=== PATIENT | female | born 1980 | race Hispanic/Latino ===

== ENCOUNTER 2019-07-10 07:44 | Day surgery (SDC) | payer OTHER ==
[2019-07-10 08:28] VITALS: BMI 35.5
[2019-07-10 08:45] VITALS: BP 118/65; TEMP 97.5
[2019-07-10] MEDS ORDERED: hydrALAZINE 20 MG/ML VIAL SLOW IVP PRN (09:01)
--- NOTE | 2019-07-10 09:40 | PDOC.FPROB ---
FMR OB H&P: HPI - History of Present Illness Chief Complaint: vaginal bleeding, abdominal pain Indentification: 39 yo at 35.1 wga by 9.3 wk sono/LMP History of Present Illness: 39 yo at 35.1 wga by 9.3 wk sono/LMP complains of vaginal bleeding as blood on TP today at 0700. Also started having pain in lower abdomen b/l and pressure. Describes as contractions every 10 minutes. Denies recent sexual intercourse, trauma, being hit to belly/falls. Denies vaginal discharge, itching , dysuria. +FM, no LOF. Primary Care Physician: PNC: Maurisio. FMR OB H&P: Current - Care : 3 Para: 2001 Gestational age: 35.1 Due date: 08/14/2019 Dating Criteria: 9.3 wk sono Course/Complications: AMA Latent TB Anterior fibroid ECHO for FHX of ASD. - OB Labs Blood type: A RH: positive Antibody Screen: negative HIV: negative RPR: negative HepBsAg: negative Rubella: immune Gonorrhea: negative Chlamydia: negative Pap Smear: NILM 1 hour gtt: 135 GBS: unknown - Anatomy Survey Anatomy survey: placenta anterior. FMR OB H&P: History - Past Medical History PMH: Uterine fibroid. - OB History OB History: Prior LTCS x2. Scheduled for repeat CS on 08/14/2019 and risk reducing salpingectomy for Fhx of ovarian cancer. - CONSTRUCTION JOB TITLES History CONSTRUCTION JOB TITLES History: None - Surgical History Sx History: 2 c-sections - Social History Social History: Denies - Family History Family History: FHx of DM FMR OB H&P: Medications - Current Home Medications: Medication Instructions Recorded Confirmed Type Vit,Calc76/Iron/Folic 1 tablet PO DAILY 07/10/19 07/10/19 History [Prenatabs Rx Tablet] Allergies/Adverse Reactions: Allergies Allergy/AdvReac Type Severity Reaction Status Date / Time No Known Allergies Allergy Unverified 07/10/19 08:24 FMR OB H&P: ROS - Review of Systems General: denies: fever/chills, weight/appetite/sleep changes Eyes: denies: vision changes ENT: denies: nasal congestion, rhinorrhea, sore throat Cardiovascular: denies: chest pain, palpitation, edema Respiratory: denies: cough, congestion, shortness of breath Gastrointestinal: reports: abdominal pain. denies: nausea, vomiting, diarrhea Genitourinary (Female): reports: vaginal bleeding, contractions. denies: dysuria, vaginal discharge, vaginal pain Musculoskeletal: denies: pain Neurologic: denies: syncope, weakness Integumentary: denies: itching, rash Hematologic/Lymphatic: denies: prolonged or excessive bleeding Psychological: denies: depression, anxiety FMR OB H&P: Vital Signs - Maternal Vital signs: Vital Signs - First Documented Temp Pulse Resp BP 97.5 F L 78 18 118/65 07/10/19 08:40 07/10/19 08:40 07/10/19 08:40 07/10/19 08:40 - Heart Tones Baseline: 140 (reactive) Variability: moderate Acceleration: present (x2) Deceleration: absent Piru contractions every: 10 min FMR OB H&P: Physical Exam - Physical Exam General: NAD, awake, alert and oriented HEENT: normocephalic and atraumatic, no scleral icterus Heart: RRR, normal S1/S2 General: CTAB, no respiratory distress Abdomen: soft, gravid (mildly tender to palpation) Neurological: no focal deficit Skin: no rash Lymphatic: no unusual bruising or bleeding, no purpura Psychiatric: normal mood and affect - Pelvic Exam Deviation from normal: speculum exam showed moderate amount of blood pooling from cervical os Estimated Weight: 7 lbs FMR OB H&P: A/P - Problem List (1) Vaginal bleeding during Current Visit: Yes Status: Acute Code(s): O46.90 - ANTEPARTUM HEMORRHAGE, UNSPECIFIED, UNSPECIFIED TRIMESTER (2) Multiparous Current Visit: Yes Status: Acute Code(s): Z64.1 - PROBLEMS RELATED TO MULTIPARITY Disposition: monitor on L&D for 6-23 hours. Discussion: Date/Time: 07/10/19 0938 Vaginal bleeding and contractions at 35.1 wga - DDx: placental abruption, labor, placenta previa, vasa previa, rupture of nabothian cyst (less likely on sterile spec exam) - No hx of trauma or sexual intercourse recently - monitor on L&D w/ continuous EFM and tocometry - NST reactive - betamethasone now and repeat in 24 hrs for lung maturity - OB limited Sono for evaluation of placenta for previa, EFW - CBC now, repeat CBC in 4 hours - Type & Cross 2 units - Fibrinogen ordered. AMA Previous 2 c-sections. This H&P was discussed with Dr. Yuan, who agrees with the above documentation and plan. Signature: Eunice Monreal MD PGY1
--- NOTE | 2019-07-10 10:16 | HP ---
This is a patient of the clinic, who was first assessed by the resident on-call, Dr. Monreal. TIME OF EVALUATION: 0930 hours. REASON FOR EVALUATION: Vaginal bleeding at 35 weeks. In brief, I agree with the resident's evaluation and I have seen the patient. In brief, this is the patient's report: HISTORY OF PRESENT ILLNESS: This is a 39-year-old, G3, P2, who is at 35 weeks by sure criteria (9-week ultrasound) with vaginal spotting on the toilet and small amount of vaginal bleeding, but no passage of clots. She has some contractions, but they are mild and irregular. She has not had recent intercourse and denies recent trauma. She denies any evidence of leakage of fluid. Once again, she has had 2 prior births. REVIEW OF SYSTEMS: Complete review of systems was checked and is otherwise negative unless specified in the HPI. PAST MEDICAL HISTORY: None. PAST SURGICAL HISTORY: Includes 2 C sections. ALLERGIES: IN TERMS OF HER ALLERGIES, THE PATIENT REPORTS NO KNOWN DRUG ALLERGIES. PHYSICAL EXAMINATION: GENERAL: She is in no acute distress. VITAL SIGNS: Stable. She is afebrile and normotensive. The patient's BMI is 35.5. ABDOMEN: Soft and nontender, and there is no evidence of uterine hypertonus. PELVIC: Currently deferred. Pending an ultrasound to confirm that a previa is not present (there is no evidence of a previa on the record. record shows that the placenta is "anterior"). On speculum exam, cervix appears grossly closed and there is a small amount of blood in the vault. There is no active bleeding at this time. monitor; heart tones show moderate variability and acceleration with no pathological decelerations. There is some uterine irritability on the tocodynamometer. At this point, the nonstress test is reassuring. Interventions ordered. We have ordered an ultrasound to confirm that the placenta location is normal, and also to check the estimated weight. We have also ordered a CBC now and a repeat one in 4 hours. We have also ordered a serum fibrinogen. ASSESSMENT: This is a multigravida, who has advanced maternal age at 39, two prior C-sections, at 35 weeks and 1 day, with vaginal bleeding, not otherwise specified. I suspect a marginal placental separation as there is no evidence of previa on review of her record. PLAN: 1. Ultrasound to confirm placental location as well as determine estimated weight. 2. The patient's Rh type is positive. 3. KB test was not ordered as a KB test is not helpful to rule out abruption. Additionally, her Rh type is positive. 4. We did not order a cervical length as she is over 34 weeks. 5. Once we rule out a previa, we will perform a cervical digital exam. 6. Follow CBCs for now and consider 6 hours to 23 hours observation for now. 7. Due to the bleeding, we may consider Celestone in case she needs to have a medically indicated delivery. Job ID: [id number]
--- NOTE | 2019-07-10 10:28 | ULT ---
LIMITED OB ULTRASOUND: HISTORY: Cervical length and placental evaluation. Vaginal bleed. FINDINGS: A single live intrauterine gestation is seen with measurements corresponding to an estimated gestatio nal age of 34 weeks 5 days and an ARIE of 08/16/2019. The estimated weight measures 2439 g (5 lb s 6 oz). measurements are as follows: BPD: 8.73 cm (35 weeks 2 days) HC: 31.11 cm (34 weeks 6 days) AC: 30.57 cm (34 weeks 4 days) FL: 6.60 cm (34 weeks 0 days) heart rate measures 147 beats per minute. ANNA measures 12.4 cm. The placenta is anteriorly loca shari without evidence of placenta previa. Cervical length measures 4.9 cm. IMPRESSION: Single live intrauterine of 34 weeks' 5 days' estimated gestational age and estimated date of delivery of 08/16/2019. POS: [facility]
[2019-07-10 11:10] LABS: #Basophils 0.1 thou/uL (0.0-0.2); #Eosinphils 0.1 thou/uL (0.0-0.7); #Lymphocytes 1.6 thou/uL (1.20-3.40); #Monocytes 0.7 thou/uL (0.11-0.59); #Neutrophils 6.8 thou/uL (1.40-6.50); %Basophils 0.6 % (0.0-1.0); %Eosinophils 0.8 % (0.0-10.0); %Lymphocytes 17.5 % (21.0-51.0); %Monocytes 7.1 % (0.0-10.0); %Neutrophils 74.1 % (42.0-75.0); Hemoglobin 11.5 g/dL (12.0-16.0); Mean Corpuscular HGB CONC 35.1 g/dL (32.0-36.0); Mean Corpuscular Hemoglobin 29.2 pg (27.0-31.0); Mean Platelet Volume 7.6 fL (7.4-10.4); Platelet Count 299 thou/uL (130-400); RBC Distribution Width 13.1 % (11.5-14.5); Red Blood Cell (RBC) Count 3.96 mill/uL (4.20-5.40); White Blood Cell (WBC) Count 9.1 thou/uL (4.8-10.8)
[2019-07-10 11:16] LABS: Bilirubin Negative (Negative); Blood, Urine Negative (Negative); Clarity Clear (Clear); Glucose, Urine (Dipstick) Normal (Negative); Leukocyte Negative Leu/uL (Negative); Mucous/LPF Rare LPF (<2+); Nitrite Negative (Negative); Protein, Urine (Dipstick) Negative (Neg-Trace); RBC/HPF 0-3 HPF (0-3); Squamous Epithelial 0-3 HPF (0-3); Urobilinogen Normal mg/dL (Less than 2); WBC/HPF 0-3 HPF (0-3)
[2019-07-10 11:17] LABS: Bacteria/HPF Rare-Few HPF (None Seen)
[2019-07-10 11:19] LABS: Urine Culture Reflex No No
--- NOTE | 2019-07-10 11:20 | PDOC.EVN ---
Event Note - Event Note Event Note: SONO Follow Up: Resident team reviewed sono with Radiologist: anterior placenta but no real concern for accreta based on prior MFM sonos done antenatally. No previa...so we can get CX check for baseline.
--- NOTE | 2019-07-10 11:46 | PDOC.BPN ---
- Brief Progress Note SVE: closed/thick/high No daren bleeding noted. Ctx have slowed. Pt encouraged to drink: clear liquid diet. Monitor for min 6 hours. Received betamethasone, first dose.
[2019-07-10] MEDS ORDERED: Betamet Acet/Betamet Na Ph 30 MG/5 ML VIAL IM SCH (12:00)
[2019-07-10 14:15] LABS: #Eosinphils 0.1 thou/uL (0.0-0.7); #Lymphocytes 1.1 thou/uL (1.20-3.40); #Monocytes 0.4 thou/uL (0.11-0.59); %Basophils 0.3 % (0.0-1.0); %Eosinophils 0.5 % (0.0-10.0); %Lymphocytes 10.5 % (21.0-51.0); %Monocytes 3.4 % (0.0-10.0); %Neutrophils 85.3 % (42.0-75.0); Hemoglobin 11.8 g/dL (12.0-16.0); Mean Corpuscular HGB CONC 36.3 g/dL (32.0-36.0); Mean Corpuscular Hemoglobin 29.9 pg (27.0-31.0); Mean Corpuscular Volume 82.5 fL (78.0-98.0); Mean Platelet Volume 7.6 fL (7.4-10.4); Platelet Count 295 thou/uL (130-400); RBC Distribution Width 13.3 % (11.5-14.5); Red Blood Cell (RBC) Count 3.94 mill/uL (4.20-5.40); White Blood Cell (WBC) Count 10.6 thou/uL (4.8-10.8)
--- NOTE | 2019-07-10 15:27 | PDOC.BPN ---
<Paulina Monreal - Last Filed: 07/10/19 15:24> - Brief Progress Note Repeat CBC unchanged. Fibrinogen high. UA wnl. OB sono showed anterior placenta w/o concern for previa or accreta. EFW appropriate for age. No continued VB noted on cervical check and none reported per patient. Pt feeling better and abdominal pain has decreased. Contractions less frequent: 1-2 per 30 minutes. May d/c and return tomorrow ~11:00 (sometime early afternoon) for second betamethasone injection and NST. Return precautions and labor precautions given. Discussed w/ Yuan. He agrees. Bhargavi Monreal. <Pascual Yuan - Last Filed: 07/10/19 15:38> - Brief Progress Note Faculty note: I have seen the patient and reviewed data. OK for outpatient follow up. Plan is for second celestone with NST tomorrow. Stable for DC with no further episode of VB
== END 2019-07-10 16:00 | disposition home health service, planned readmission (86) ==
LOC: L&D/OP 07:44
PROVIDERS: ATTEND Emergency Medicine
DX: O26.853 Spotting complicating pregnancy, third trimester (principal); O47.03 False labor before 37 completed weeks of gestation, third trimester; O09.523 Supervision of elderly multigravida, third trimester; O34.219 Maternal care for unspecified type scar from previous cesarean delivery; Z3A.35 35 weeks gestation of pregnancy
CPT/HCPCS: 36415; 51701; 76815; 81001; 85025; 85384; 86850; 86900; 86901; 96372; J0702

== ENCOUNTER 2019-07-11 11:12 | Day surgery (SDC) | payer OTHER ==
[2019-07-11 12:03] VITALS: BP 110/59; TEMP 98.7; BMI 36.3
[2019-07-11] MEDS ORDERED: Betamet Acet/Betamet Na Ph 30 MG/5 ML VIAL IM SCH (12:15)
--- NOTE | 2019-07-16 15:20 | PRG ---
DATE OF SERVICE: 07/15/2019 This patient returned to outpatient Labor and Delivery for a second betamethasone shot and nonstress test to assess for well-being. The patient was placed on nonstress test monitor for greater than 20 minutes. I personally reviewed the strip. It appeared to be reactive. The mother did not appear to be in active labor or heavy contractions. The patient was then given her second betamethasone shot for lung maturity, and was deemed suitable to be discharged home. Job ID: [id number]
== END 2019-07-11 13:10 | disposition home or self-care (01) ==
LOC: L&D/OP 11:12
PROVIDERS: ATTEND Student in an Organized Health Care Education/Training Program
DX: Z29.8 Encounter for other specified prophylactic measures (principal)

== ENCOUNTER 2019-07-15 10:32 | Day surgery (SDC) | payer OTHER ==
[2019-07-15 11:18] VITALS: BMI 36.3
[2019-07-15] MEDS ORDERED: hydrALAZINE 20 MG/ML VIAL SLOW IVP PRN (11:40)
[2019-07-15] MEDS ORDERED: Sodium Chloride 0.9% 1,000 ML IV SCH (11:45)
--- NOTE | 2019-07-15 11:45 | PDOC.FPROB ---
FMR OB H&P: HPI - History of Present Illness Chief Complaint: Contractions Indentification: female at 35.5 weeks EGA by LMP c/w 9.4 week U/S History of Present Illness: Patient is a 39 yo female at 35.5 weeks by LMP c/w 9.4 week U/S who presents to L&D triage with complaint of contractions since 0500 this mornings. She states that from 5-6AM was having contractions every 10 min, then since 6AM having contractions every 5 min. She says she felt well yesterday. In addition to the contractions she complains of constant back pain that she feels even without the contractions. Also has some abdominal pain that started around 5AM. Denies any vaginal bleeding or discharge, headaches, dizziness, blurry vision, paresthesias, myalgias, edema. Of note, Patient was seen for vaginal bleeding on 07/10/19, was given dose of steroids x 2 at that time. No bleeding or discharge since. Primary Care Physician: Vero FMR OB H&P: Current - Care : 3 Para: 2 Gestational age: 35.5 Due date: 08/14/2019 Dating Criteria: LMP c/w 9.4 week sono Course/Complications: AMA Obesity Latent TB Anterior fibroid ECHO for FHX of sister with ASD & Pulm stenosis-echo was normal with rec for echo once delivered - OB Labs Blood type: A RH: positive Antibody Screen: negative HIV: negative RPR: negative HepBsAg: negative Rubella: immune Quad screen: unknown Urine drug screen: not done Gonorrhea: negative Chlamydia: negative Pap Smear: NILM 1 hour gtt: 135 GBS: unknown H&H: 10.6/30.8 - Anatomy Survey Anatomy survey: Anterior Placenta Anterior Uterine fibroid FMR OB H&P: History - Past Medical History PMH: Obesity Uterine fibroid - OB History OB History: Prior LTCS x2. 1st LTCS in 2008 for long labor & decreased fluid. Elective rLTCS in 2009. Both term pregnancies Scheduled for repeat CS on 08/14/2019 and risk reducing salpingectomy for Fhx of ovarian cancer. 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 - Family History Family History: Ovarian Cancer Diabetes Mellitus Daughter with ASD & Pulmonary stenosis, has been followed by M in this FMR OB H&P: Medications - Current Home Medications: Medication Instructions Recorded Confirmed Type Vit,Calc76/Iron/Folic 1 tablet PO DAILY 07/10/19 07/15/19 History [Prenatabs Rx Tablet] Allergies/Adverse Reactions: Allergies Allergy/AdvReac Type Severity Reaction Status Date / Time No Known Allergies Allergy Verified 07/15/19 11:19 FMR OB H&P: ROS - Review of Systems General: denies: fever/chills, weight/appetite/sleep changes, fatigue, recent trauma Eyes: denies: vision changes, double vision ENT: denies: nasal congestion, rhinorrhea, sore throat Cardiovascular: denies: chest pain, palpitation, edema Respiratory: denies: cough, congestion, shortness of breath Gastrointestinal: reports: abdominal pain. denies: nausea, vomiting, diarrhea, constipation, bright red blood, dark black tarry stools Genitourinary (Female): reports: contractions, vaginal pressure. denies: dysuria, hematuria, vaginal discharge, vaginal pain, vaginal bleeding Musculoskeletal: denies: pain, tenderness, swelling Neurologic: denies: numbness, weakness, headache Integumentary: denies: itching, rash, lesions Psychological: denies: depression, anxiety FMR OB H&P: Vital Signs - Maternal Vital signs: BP 111/58 - Heart Tones Baseline: 145 Variability: moderate Acceleration: present Deceleration: absent [place] contractions every: 5 min FMR OB H&P: Physical Exam - Physical Exam General: NAD, awake, alert and oriented HEENT: normocephalic and atraumatic, EOMI, MMM, conjunctiva clear, grossly normal vision, grossly normal hearing Neck: supple Heart: RRR, normal S1/S2, no murmurs/rubs/gallops, pulses present, no edema General: CTAB, no respiratory distress, good air movement, no rales/rhonchi, no wheezing Abdomen: soft, bowel sound present Deviation from normal: TTP over fundus with light palpation Musculoskeletal: pulses present Neurological: sensation to pain,touch and proprioception grossly normal, no focal deficit Skin: no rash, good tugor Lymphatic: no unusual bruising or bleeding Psychiatric: intact recent and remote memory, normal mood and affect - Pelvic Exam Vulva: no lesions, no discharge, no blood Cervix: no blood (cervix closed and high) Membranes: intact FMR OB H&P: A/P Disposition: 39 yo female at 35.5 weeks by LMP c/w 9.4 wk sono presents with contractions & abdominal pain: #Third Trimester , currently ant -hx of 2 prior C/S -give 1 L NS IVF bolus -place on monitoring, currently showing contractions q5min -obtain US abdomen to r/o abruption given hx of abdominal pain & exam findings -check CBC to r/o infection -per previous U/S has anterior placenta & anterior fibroid #Advanced Maternal Age -followed by M, has next growth scan U/S ordered for Jul 20 #Obesity -passed 1 hr GTT -diet counseling Dispo: Will plan to obtain U/S and labs. Continue monitoring. Will administer 1L NS IVF bolus. Will recheck in 1-2 hours. Discussion: Date/Time: 07/15/19 0052 This H&P was discussed with Dr. Forde and Dr. Leon who agree with the above documentation and plan. Signature: Brigid Houston DO PGY1 Addendum - Attending - Attending Attestation Date/Time: 07/15/19 1251 I personally evaluated the patient and discussed the management with Drs. Houston and Maurisio. I agree with the History, Examination, Assessment and Plan documented above.
[2019-07-15 12:10] LABS: #Basophils 0.1 thou/uL (0.0-0.2); #Eosinphils 0.1 thou/uL (0.0-0.7); #Lymphocytes 2.5 thou/uL (1.20-3.40); #Neutrophils 11.4 thou/uL (1.40-6.50); %Basophils 0.5 % (0.0-1.0); %Eosinophils 0.5 % (0.0-10.0); %Lymphocytes 16.4 % (21.0-51.0); %Monocytes 6.7 % (0.0-10.0); Hemoglobin 12.7 g/dL (12.0-16.0); Mean Corpuscular HGB CONC 35.3 g/dL (32.0-36.0); Mean Corpuscular Hemoglobin 28.5 pg (27.0-31.0); Mean Corpuscular Volume 80.9 fL (78.0-98.0); Mean Platelet Volume 8.1 fL (7.4-10.4); Platelet Count 342 thou/uL (130-400); RBC Distribution Width 13.5 % (11.5-14.5); Red Blood Cell (RBC) Count 4.46 mill/uL (4.20-5.40); White Blood Cell (WBC) Count 15.1 thou/uL (4.8-10.8)
--- NOTE | 2019-07-15 12:27 | ULT ---
LIMITED OB ULTRASOUND: HISTORY: Abdominal pain. Concern for abruption. FINDINGS: A single live intrauterine gestation is seen with measurements corresponding to an estimated gestatio nal age of 35 weeks 6 days and an ARIE of 08/13/2019. The estimated weight measures 2763 g or 6 lbs 1 oz (51st percentile by Hadlock criteria). measurements are as follows: BPD: 8.92 cm (36 weeks 1 day) HC: 32.07 cm (36 weeks 1 day) AC: 32.04 cm (36 weeks 0 days) FL: 6.83 cm (35 weeks 1 day) heart rate measures 144 beats per minute. ANNA measures 15.6 cm. Placenta is anteriorly located without evidence of placenta previa. No retroplacental hematoma is seen. IMPRESSION: Single live intrauterine of 35 weeks' 6 days' estimated gestational age and estimated date of delivery of 08/13/2019. No sonographic evidence of placental obstruction. POS: [facility]
[2019-07-15] MEDS ORDERED: Butorphanol Tartrate 1 MG/ML VIAL SLOW IVP SCH (13:15)
[2019-07-15] MEDS ORDERED: Acetaminophen 325 MG TAB PO SCH (13:15)
[2019-07-15] MEDS ORDERED: Lactated Ringer's 1,000 ML IV SCH ×2 (15:45→17:00)
--- NOTE | 2019-07-15 16:20 | PDOC.EVN ---
Event Note - Event Note Event Note: Given 650mg Tylenol and 1mg Stadol as well as 2L LR. Painful contractions have resolved, now just uterine irritability on monitor. Reports constant pelvic pressure that has been present for 2 months and better with position changes but no longer having contractions that come and go. Return precautions given. F/u at [facility]. C/S scheduled for Aug 14 Addendum - Attending - Attending Attestation Date/Time: 07/15/19 9590 I personally evaluated the patient and discussed the management with Dr. Forde. I agree with Assessment and Plan documented above.
== END 2019-07-15 17:30 | disposition home or self-care (01) ==
LOC: L&D/OP 10:32
PROVIDERS: ATTEND Obstetrics & Gynecology
DX: O47.03 False labor before 37 completed weeks of gestation, third trimester (principal); O09.523 Supervision of elderly multigravida, third trimester; O99.213 Obesity complicating pregnancy, third trimester; E66.9 Obesity, unspecified; O34.13 Maternal care for benign tumor of corpus uteri, third trimester; D25.9 Leiomyoma of uterus, unspecified; O34.211 Maternal care for low transverse scar from previous cesarean delivery; Z3A.35 35 weeks gestation of pregnancy
CPT/HCPCS: 76815; 85025; J0595

== ENCOUNTER 2019-07-15 21:30 | Inpatient (IN) | payer MEDICAID, OTHER, SELFPAY ==
[2019-07-15] MEDS ORDERED: hydrALAZINE 20 MG/ML VIAL SLOW IVP PRN (21:34)
[2019-07-15] MEDS ORDERED: Ondansetron PF 4 MG/2 ML Vial IVP PRN ×2 (21:34→22:41)
[2019-07-15] MEDS ORDERED: Promethazine HCl 25 MG/ML VIAL IM PRN ×2 (21:34→22:41)
[2019-07-15] MEDS ORDERED: Bicitra 30 ML UDCUP ONE (21:36)
[2019-07-15 21:38] VITALS: BMI 36.3
--- NOTE | 2019-07-15 21:43 | PDOC.FPROB ---
FMR OB H&P: HPI - History of Present Illness Chief Complaint: Gross rupture of membranes Indentification: female at 35.5 weeks EGA by LMP c/w 9.4 week U/S History of Present Illness: Patient is a 39 yo female at 35.5 weeks by LMP c/w 9.4 week U/S who presents to L&D triage with complaint of contractions since 0500 this mornings. She states that from 5-6AM was having contractions every 10 min, then since 6AM having contractions every 5 min. She says she felt well yesterday. In addition to the contractions she complains of constant back pain that she feels even without the contractions. Also has some abdominal pain that started around 5AM. Patient with gross rupture of membranes, clear with blood tinge around 21:00, just prior to arrival. Patient with extremely painful contractions q4-5 minutes. Of note, Patient was seen for vaginal bleeding on 07/10/19, was given dose of steroids x 2 at that time. Primary Care Physician: CHERELLE Forde FMR OB H&P: Current - Care : 3 Para: 2001 Gestational age: 35.5 wks Due date: 08/14/2019 Dating Criteria: LMP/9.4 wk sono Course/Complications: AMA Obesity Latent TB Anterior fibroid ECHO for FHX of sister with ASD & Pulm stenosis-echo was normal with rec for echo once delivered - OB Labs Blood type: A RH: positive Antibody Screen: negative HIV: negative RPR: negative HepBsAg: negative Rubella: immune Quad screen: unknown Gonorrhea: negative Chlamydia: negative Pap Smear: NILM GBS: unknown - Additional Ultrasound Additional: Anterior Placenta Anterior Uterine fibroid FMR OB H&P: History - Past Medical History PMH: Obesity Uterine fibroid - OB History OB History: Prior LTCS x2. 1st LTCS in 2008 for long labor & decreased fluid. Elective rLTCS in 2009. Both term pregnancies Scheduled for repeat CS on 08/14/2019 and risk reducing salpingectomy for Fhx of ovarian cancer. 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 - Family History Family History: Ovarian Cancer Diabetes Mellitus Daughter with ASD & Pulmonary stenosis, has been followed by MFM in this FMR OB H&P: Medications - Current Home Medications: Medication Instructions Recorded Confirmed Type Vit,Calc76/Iron/Folic 1 tablet PO DAILY 07/10/19 07/15/19 History [Prenatabs Rx Tablet] Allergies/Adverse Reactions: Allergies Allergy/AdvReac Type Severity Reaction Status Date / Time No Known Allergies Allergy Verified 07/15/19 11:19 FMR OB H&P: ROS - Review of Systems General: denies: fever/chills, weight/appetite/sleep changes ENT: denies: nasal congestion, rhinorrhea, sore throat Cardiovascular: denies: chest pain, palpitation, edema Respiratory: denies: cough, congestion, shortness of breath Gastrointestinal: reports: abdominal pain, nausea. denies: vomiting Genitourinary (Female): reports: vaginal pain, vaginal bleeding, contractions. denies: dysuria, vaginal discharge Musculoskeletal: denies: pain, stiffness Neurologic: denies: numbness, weakness Integumentary: denies: itching, rash Hematologic/Lymphatic: denies: prolonged or excessive bleeding Psychological: denies: depression, anxiety FMR OB H&P: Vital Signs - Heart Tones Baseline: 155 Variability: minimal Acceleration: absent Deceleration: variable Category: category 2 [place] contractions every: q3-4 min FMR OB H&P: Physical Exam - Physical Exam General: awake, alert and oriented Deviation from normal: In pain 2/2 contractions HEENT: MMM, grossly normal vision, grossly normal hearing Heart: RRR, pulses present General: CTAB, no respiratory distress Abdomen: soft, gravid Musculoskeletal: pulses present, FROM in all four extremities Neurological: no tremor, no focal deficit Skin: no rash, capillary refill <2 seconds Lymphatic: no unusual bruising or bleeding, no purpura FMR OB H&P: A/P - Problem List (1) premature rupture of membranes Current Visit: Yes Status: Acute Code(s): O42.919 - PRETRM SNEHA ROM, UNSP TIME BETW RUPT AND ONST LABR, UNSP TRI (2) AMA (advanced maternal age) multigravida 35+ Current Visit: Yes Status: Acute Code(s): O09.529 - SUPERVISION OF ELDERLY MULTIGRAVIDA, UNSPECIFIED TRIMESTER (3) Obesity Current Visit: Yes Status: Acute Code(s): E66.9 - OBESITY, UNSPECIFIED (4) History of low transverse section Current Visit: Yes Status: Acute Code(s): Z98.891 - HISTORY OF UTERINE SCAR FROM PREVIOUS SURGERY (5) Latent tuberculosis Current Visit: Yes Status: Acute Disposition: 39 year old at 35.5 wks by LMP/9.4 wk sono presents with PPROM PPROM - prior c/s x2 - plan for repeat c/s - anesthesia notified - s/p 2 doses betamethasone on 07/10, 07/11 - ancef and azithromycin to be given for ppx Family history ovarian cancer - pt approved for RSS - consent signed and approval in chart AMA - no quad screen done Obesity Latent TB - s/p treatment 8 months ago Family history ASD - echo normal, plan for echo after delivery in period Dispo: Admit to L&D. Will proceed with rLTCS. Anesthesia notified. Discussion: Date/Time: 07/15/192140 This H&P was discussed with Dr. Leon who agrees with the above documentation and plan. Signature: Rosina Patel DO PGY-3 Addendum - Attending - Attending Attestation Date/Time: 07/15/198 I personally evaluated the patient and discussed the management with Dr. Conner. I agree with the History, Examination, Assessment and Plan documented above.
[2019-07-15 21:44] LABS: Hemoglobin 12.8 g/dL (12.0-16.0); Mean Corpuscular Hemoglobin 28.3 pg (27.0-31.0); Mean Corpuscular Volume 80.9 fL (78.0-98.0); Mean Platelet Volume 8.1 fL (7.4-10.4); Platelet Count 349 thou/uL (130-400); RBC Distribution Width 13.5 % (11.5-14.5); Red Blood Cell (RBC) Count 4.53 mill/uL (4.20-5.40); White Blood Cell (WBC) Count 15.5 thou/uL (4.8-10.8)
[2019-07-15] MEDS ORDERED: Azithromycin 500 MG in Sodium Chloride 0.9% 250 ML 250 ML IVPB SCH (21:45)
[2019-07-15] MEDS ORDERED: CEFAZOLIN 2 GM in Premix Bag 1 BAG IVPB SCH (21:45)
[2019-07-15] MEDS ORDERED: Bicitra 30 ML UDCUP PO SCH (21:45)
[2019-07-15] MEDS ORDERED: Lactated Ringer's 1,000 ML IV SCH (21:45)
[2019-07-15] MEDS ORDERED: MORPHINE 5 MG/10 ML PF VIAL ONE (21:55)
[2019-07-15] MEDS ORDERED: PHENYLEPHRINE-NS 100 MCG/ML 10 ML SYRINGE ONE (21:55)
[2019-07-15] MEDS ORDERED: Ondansetron PF 4 MG/2 ML Vial ONE (21:55)
[2019-07-15] MEDS ORDERED: diphenhydrAMINE 50 MG/ML VIAL ONE (21:55)
[2019-07-15] MEDS ORDERED: Ketorolac Tromethamine 30 MG/ML VIAL ONE (21:55)
[2019-07-15] MEDS ORDERED: Dexamethasone 4 mg/ml Vial ONE (21:55)
[2019-07-15] MEDS ORDERED: Oxytocin 10 UNITS/ML VIAL ONE (21:55)
[2019-07-15 22:23] LABS: Syphilis Antibody Nonreactive (Nonreactive); Syphilis Antibody Index 0.06 S/CO (<1.00 Non-Reactive)
[2019-07-15] MEDS ORDERED: ePHEDrine/0.9% NaCl/PF SYRINGE 50 mg/10 ml ONE (22:28)
[2019-07-15] MEDS ORDERED: Naloxone HCl 0.4 mg/ml Vial IVP PRN ×2 (22:41)
[2019-07-15] MEDS ORDERED: Promethazine HCl 25 MG SUPP PR PRN (22:41)
[2019-07-15] MEDS ORDERED: Meperidine HCl/PF 25 MG/ML VIAL SLOW IVP PRN (22:41)
[2019-07-15] MEDS ORDERED: diphenhydrAMINE 50 MG/ML VIAL IVP PRN (22:41)
[2019-07-15] MEDS ORDERED: Naloxone HCl 0.4 mg/ml Vial IV PRN (22:41)
[2019-07-15] MEDS ORDERED: Ondansetron HCl/PF 4 MG/2 ML Vial IVP PRN (22:41)
[2019-07-15] MEDS ORDERED: L&D-Morphine 4 MG/ML VIAL SLOW IVP PRN (22:41)
[2019-07-15] MEDS ORDERED: HYDROmorphone 2 MG/ML VIAL SLOW IVP PRN (22:41)
[2019-07-15] MEDS ORDERED: Communication Order-Pharmacy FS SCH (22:45)
[2019-07-15] MEDS ORDERED: Ketamine 50 MG/ML (10ML VIAL) ONE (22:59)
[2019-07-15] MEDS ORDERED: Midazolam HCl 2 mg/2 ml Vial ONE (23:02)
[2019-07-15 23:25] LABS: Hep B Surf Ag Non-Reactive S/CO (NonReactive)
[2019-07-16 00:27] LABS: Hemoglobin 11.8 g/dL (12.0-16.0); Mean Corpuscular Hemoglobin 29.1 pg (27.0-31.0); Mean Corpuscular Volume 83.2 fL (78.0-98.0); Mean Platelet Volume 7.8 fL (7.4-10.4); Platelet Count 329 thou/uL (130-400); RBC Distribution Width 13.6 % (11.5-14.5); Red Blood Cell (RBC) Count 4.05 mill/uL (4.20-5.40)
[2019-07-16 00:32] LABS: PTT 28.4 SEC (22.9-36.1); Prothrombin Time 13.3 SEC (12.0-14.7)
[2019-07-16] MEDS ORDERED: Bisacodyl 10 MG SUPP PR PRN (01:31)
[2019-07-16] MEDS ORDERED: Milk Of Magnesia 30 ML UDCUP PO PRN (01:31)
[2019-07-16] MEDS ORDERED: hydrALAZINE 20 MG/ML VIAL SLOW IVP PRN (01:31)
[2019-07-16] MEDS ORDERED: Lanolin Ointment 7 GM TUBE TOP PRN (01:31)
[2019-07-16] MEDS ORDERED: Ondansetron PF 4 MG/2 ML Vial IVP PRN (01:31)
--- NOTE | 2019-07-16 02:15 | OP ---
DATE OF PROCEDURE: 07/15/2019 RESIDENT SURGEONS: 1. Luh Forde, PGY-2. 2. Rosina Patel, PGY-3. PROCEDURE PERFORMED: Repeat low-transverse section x3. PREOPERATIVE DIAGNOSES: 1. Intrauterine at 35 and 5 weeks. 2. Previous section x2. 3. Against medical advice. 4. Obesity. 5. Anterior fibroid. 6. Family history of ovarian cancer. 7. Family history of atrial septal defect. POSTOPERATIVE DIAGNOSES: 1. Intrauterine , delivered. 2. Previous section x2. 3. Advanced maternal age 4. Obesity. 5. Anterior fibroid. 6. Family history of ovarian cancer. 7. Family history of atrial septal defect. ANESTHESIA: Spinal. INDICATIONS FOR PROCEDURE: The patient is a 39-year-old, G3, P 2-0-0-2 female at 35 and 5 weeks' gestation, who presents with spontaneous rupture of membranes. DESCRIPTION OF PROCEDURE: After risks, benefits, and alternatives were explained to the patient, she gave informed consent. Preop antibiotics included cefazolin 2 g IV Azithromycin 500 mg IV. The patient was taken to the operating room, and spinal anesthesia was initiated. She was placed in the supine position with a left tilt and prepped and draped in the usual sterile fashion. A Pfannenstiel incision was made with a scalpel and carried down to the level of the fascia, which was sharply nicked. The fascial cut was extended bilaterally with Parsons scissors. The inferior and superior edges of the cut fascia were elevated with Jessica clamps, and underlying rectus muscles were sharply and bluntly dissected free. The recti were divided digitally and retracted manually. The peritoneum was entered bluntly and retracted manually. Bladder blade was placed. A low transverse score was made. A uterine window was noted in the lower uterine segment, which was entered bluntly and extended manually. The infant was noted to be vertex and easily delivered by fundal pressure. Mouth and nares were bulb suctioned. Cord clamped and cut and grossly normal female infant was handed to waiting nurse. Cord blood was obtained. Placenta was expectantly extracted, found to be intact with 3-vessel cord, and sent for pathology. The uterus was externalized, and the endometrium was curetted with a dry lap. Bladder blade was replaced, and the uterus was closed with running locking 1 Monocryl, followed by several interrupted stitches for hemostasis using 1 chromic. Hematoma was noted near the left round ligament, and [place] stitch was placed with resolution of hematoma. The oozing was still noted from hysterotomy site. So, FloSeal was used to obtain hemostasis. After this, a risk-reducing salpingectomy was performed. Please see Dr. Leon's op note for details. The bladder was irrigated and retrograde irrigated with sterile formula and bladder was noted to be intact with no concerns for perforation. Urine was clear with no blood prior to irrigation. The uterus was internalized, and the hysterotomy was again noted to be hemostatic. The fascia was closed with a running nonlocking 0 PDS suture. The subcutaneous tissue was irrigated, bleeders were cauterized using Bovie with resulting hemostasis. After this, subcutaneous tissue was closed with 2-0 plain gut. The skin was approximated with lisa and pressure dressing was placed. All counts were correct. The patient tolerated the procedure well and was taken to the recovery room in stable condition. QUANTITATIVE BLOOD LOSS: 1165, indicating hemorrhage. COMPLICATIONS: hemorrhage. SPECIMENS: Cord blood sent to Lab for blood type and placenta sent to Pathology. FINDINGS: Grossly normal female with Apgars of 9 and 9. DRAINS: Mcguire to gravity, draining clear urine. Present to attend this repeat C/S with Dr. Conner and Maurisio. I agree with details noted above. Job ID: [id number] [facility]
[2019-07-16] MEDS: Ketorolac Tromethamine 30 MG/ML VIAL IVP SCH ×4 (05:27→23:20)
--- NOTE | 2019-07-16 07:15 | PDOC.PP ---
Post Progress Note Post Day #: 1 Subjective: Pain well controlled with medication. Olivier still in place draining clear/ yellow fluid. Has not yet ambulated or attempted PO intake. is going well and bleeding has slowed down significantly. PO intake tolerated: no Flatus: no Ambulation: no Vital Signs (12 hours) Temp Pulse Resp BP Pulse Ox 07/16/19 05:30 70 119/58 L 07/16/19 03:10 98.8 F 65 16 90/47 L 07/16/19 02:10 98.6 F 72 16 96/52 L 98 Weight Weight 81.647 kg - Physical Examination General: NAD Cardiovascular: no m/r/g, RRR Respiratory: clear to auscultation bilaterally, non-labored breathing Abdominal: + bowel sounds, appropriately TTP Fundus firm & at: below umbilicus Deviation from normal: CS incision with pressure dressing Neurological: no gross focal deficits Psychiatric: A&Ox3, normal affect Result Diagrams: 07/17/19 05:38 Additional Labs: Post Labs Blood Type A POSITIVE 07/15/19 21:35 Hep Bs Antigen Non-Reactive S/CO (NonReactive) 07/15/19 21:35 - Assessment/Plan 39yo now delivered female infant 07/15 via rLTCS at 35.5wks by LMP/9.4wk US after presenting in PPROM PPROM, delivered - prior c/s x3 - s/p 2 doses betamethasone on 07/10, 07/11 - d/c olivier, encourage ambulation and PO intake - - Pain well controlled with meds PPH - Hgb: 11.8-> 12.8. Hematocrit 36.6-> 33.7 - Continue Iron supplementation Family history ovarian cancer - s/p RSS - Consent signed and approval in chart AMA Obesity Latent TB - s/p tx 8mo ago Family history ASD - echo normal, plan for echo after delivery in period Addendum - Attending - Attending Attestation Date/Time: 07/17/19 2591 I personally evaluated the patient and discussed the management with Dr. munoz. I agree with the Assessment and Plan documented above.
[2019-07-16] MEDS: Ferrous Sulfate 325 MG TAB PO SCH ×2 (08:42→16:15)
[2019-07-16] MEDS ORDERED: Adacel (T-DAP) 0.5 ML SYRINGE IM ONE (09:00)
[2019-07-16] MEDS: Polyethylene Glycol 3350 17 GM Packet PO SCH (09:16)
[2019-07-16] MEDS: Docusate 100 MG CAP PO SCH ×2 (09:16→20:19)
[2019-07-16] MEDS: Prenatal Vitamin 1 TAB PO SCH (09:16)
--- NOTE | 2019-07-16 10:59 | OP ---
DATE OF PROCEDURE: 07/15/2019 PREOPERATIVE DIAGNOSIS: Family history of ovarian cancer. POSTOPERATIVE DIAGNOSIS: Family history of ovarian cancer. PROCEDURE: Risk reducing bilateral salpingectomies. 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 and Luh Forde MD. BRIEF PATIENT DESCRIPTION: Ms. Chery is a 39-year-old multigravida with 2 previous sections, who presents now with ruptured membranes in active labor with two previous sections. Her consent for risk reducing salpingectomy due to family history of ovarian cancer has been complete. Her consent is on the chart. TECHNIQUE IN DETAIL: After the hysterotomy incision was closed, attention was turned to the left fallopian tube. A Denise clamp was placed across the mesosalpinx and excised. Serial clamps were then placed along the mesosalpinx to remove the tube. Individual sutures of #1 chromic were placed. A similar procedure was carried out on the other side. Good hemostasis was noticed along each mesosalpinx and there was no evidence of bleeding at the conclusion of the procedure. The remainder of the section was carried out per the dictated section operative report. Job ID: [id number]
[2019-07-16] MEDS: HYDROcodone/Acetaminophen 5/325 mg Tablet PO PRN ×2 (12:51→20:19)
[2019-07-17] MEDS: Ibuprofen 800 MG TAB PO SCH ×3 (05:26→22:32)
[2019-07-17] MEDS: HYDROcodone/Acetaminophen 5/325 mg Tablet PO PRN ×4 (05:30→22:32)
[2019-07-17 05:56] LABS: Hemoglobin 10.4 g/dL (12.0-16.0); Mean Corpuscular HGB CONC 34.9 g/dL (32.0-36.0); Mean Corpuscular Hemoglobin 28.5 pg (27.0-31.0); Mean Corpuscular Volume 81.9 fL (78.0-98.0); Mean Platelet Volume 7.6 fL (7.4-10.4); Platelet Count 293 thou/uL (130-400); RBC Distribution Width 13.6 % (11.5-14.5); Red Blood Cell (RBC) Count 3.64 mill/uL (4.20-5.40); White Blood Cell (WBC) Count 14.2 thou/uL (4.8-10.8)
--- NOTE | 2019-07-17 07:07 | PDOC.PP ---
Post Progress Note Post Day #: 2 Subjective: POD#2 from rLTCS. Having increased lower pelvic pain but controlled with medications. She is ambulating and tolerating PO. Has not had a BM yet. or passed gas. Has been visitng baby in the nursery and as well as pumping. PO intake tolerated: yes Flatus: yes Ambulation: yes Vital Signs (12 hours) Temp Pulse Resp BP Pulse Ox 07/17/19 05:00 97.7 F 87 16 110/59 L 07/16/19 20:00 96 07/16/19 19:43 98.5 F 84 12 106/50 L 96 Weight Weight 81.647 kg - Physical Examination General: NAD Cardiovascular: no m/r/g, RRR Respiratory: clear to auscultation bilaterally, non-labored breathing Abdominal: + bowel sounds Skin: CS incision dry & intact Psychiatric: A&Ox3, normal affect Result Diagrams: 07/17/19 05:38 Additional Labs: Post Labs Blood Type A POSITIVE 07/15/19 21:35 Hep Bs Antigen Non-Reactive S/CO (NonReactive) 07/15/19 21:35 - Assessment/Plan 39yo now delivered female infant 07/15 via rLTCS at 35.5wks by LMP/9.4wk US after presenting in PPROM PPROM, delivered - prior c/s x3 - s/p 2 doses betamethasone on 07/10, 07/11 - - Meeting PP milestones. Continue routine care. Likely d/c tomorrow PPH - Hgb: 11.8-> 12.8. Hematocrit 36.6-> 33.7 - Continue Iron supplementation Family history ovarian cancer - s/p RSS - Consent signed and approval in chart AMA Obesity Latent TB - s/p tx 8mo ago Family history ASD - echo normal, plan for echo after delivery in period Addendum - Attending - Attending Attestation Date/Time: 07/19/19 0809 I personally evaluated the patient and discussed the management with Dr. Forde I agree with the History, Examination, Assessment and Plan documented above with any addition or exceptions noted below.
[2019-07-17] MEDS: Ferrous Sulfate 325 MG TAB PO SCH ×2 (08:46→17:04)
[2019-07-17] MEDS: Prenatal Vitamin 1 TAB PO SCH (09:23)
[2019-07-17] MEDS: Polyethylene Glycol 3350 17 GM Packet PO SCH (09:23)
[2019-07-17] MEDS: Docusate 100 MG CAP PO SCH ×2 (09:23→22:32)
[2019-07-18] MEDS: Ibuprofen 800 MG TAB PO SCH ×3 (05:40→22:17)
[2019-07-18] MEDS: HYDROcodone/Acetaminophen 5/325 mg Tablet PO PRN (05:40)
--- NOTE | 2019-07-18 07:13 | PDOC.PP ---
Post Progress Note Post Day #: 3 Subjective: Feeling well today. Pain is improved from yesterday but continues to need Eagar. Ambulating and passing gas. Tolerating PO. PO intake tolerated: yes Flatus: yes Ambulation: yes Vital Signs (12 hours) Temp Pulse Resp BP Pulse Ox 07/17/19 19:21 98.6 F 76 20 115/53 L 99 Weight Weight 81.647 kg - Physical Examination General: NAD Cardiovascular: no m/r/g, RRR Respiratory: clear to auscultation bilaterally, non-labored breathing Abdominal: + bowel sounds Skin: CS incision dry & intact Neurological: no gross focal deficits Psychiatric: A&Ox3, normal affect Result Diagrams: 07/17/19 05:38 Additional Labs: Post Labs Blood Type A POSITIVE 07/15/19 21:35 Hep Bs Antigen Non-Reactive S/CO (NonReactive) 07/15/19 21:35 - Assessment/Plan 39yo now delivered female 07/15 via rLTCS at 35.5wks by LMP/9.4wk US after presenting in PPROM PPROM, delivered POD #3 - prior c/s x3 - s/p 2 doses betamethasone on 07/10, 07/11 - - Meeting PP milestones. Continue routine care. - Baby in NICU will switch from Eagar to Tylenol #3, attempt to wean from Tylenol #3 tomorrow and likely d/c or bed and breakfast tomorrow. PPH - Hgb: 11.8-> 12.8. Hematocrit 36.6-> 33.7 - Continue Iron supplementation - VSS Family history ovarian cancer - s/p RSS - Consent signed and approval in chart AMA Obesity Latent TB - s/p tx 8mo ago Family history ASD - echo normal, plan for echo after delivery in period
[2019-07-18] MEDS: Ferrous Sulfate 325 MG TAB PO SCH ×2 (08:54→17:33)
[2019-07-18] MEDS: Acetaminophen/Codeine 30-300mg Tablet PO PRN ×2 (10:34→22:17)
[2019-07-18] MEDS: Prenatal Vitamin 1 TAB PO SCH (10:35)
[2019-07-18] MEDS: Polyethylene Glycol 3350 17 GM Packet PO SCH (10:35)
[2019-07-18] MEDS: Docusate 100 MG CAP PO SCH ×2 (10:35→22:17)
[2019-07-19] MEDS: Ibuprofen 800 MG TAB PO SCH ×2 (05:36→09:02)
[2019-07-19 08:17] VITALS: BP 104/52; TEMP 98.1
[2019-07-19] MEDS ORDERED: traMADol HCl 50 MG TAB PO PRN (08:42)
[2019-07-19] MEDS ORDERED: traMADol HCl 50 MG TAB PO SCH (08:45)
--- NOTE | 2019-07-19 08:47 | PDOC.PP ---
Post Progress Note Post Day #: 4 Subjective: Pain well controlled with medications. Has been going to see baby in the NICU. Ambulating and tolerating PO. Passing gas and no difficulty urinating. PO intake tolerated: yes Flatus: yes Ambulation: yes Vital Signs (12 hours) Temp Pulse Resp BP Pulse Ox 07/19/19 08:16 98.1 F 69 20 104/52 L 98 Weight Weight 81.647 kg - Physical Examination General: NAD Cardiovascular: no m/r/g, RRR Respiratory: clear to auscultation bilaterally Abdominal: + bowel sounds, appropriately TTP Fundus firm & at: below umbilicus Skin: CS incision dry & intact, no rash Neurological: no gross focal deficits Psychiatric: A&Ox3, normal affect Result Diagrams: 07/17/19 05:38 Additional Labs: Post Labs Blood Type A POSITIVE 07/15/19 21:35 Hep Bs Antigen Non-Reactive S/CO (NonReactive) 07/15/19 21:35 - Assessment/Plan 39yo now delivered female 07/15 via rLTCS at 35.5wks by LMP/9.4wk US after presenting in PPROM PPROM, delivered POD #3 - prior c/s x3 - s/p 2 doses betamethasone on 07/10, 07/11 - - Meeting PP milestones. Continue routine care. - Will transition from Tylenol #3 to Tramadol. Test dose before discharge. - Lois to be removed in next 1-3 days PPH - Hgb: 11.8-> 12.8. Hematocrit 36.6-> 33.7 - Continue Iron supplementation - VSS Family history ovarian cancer - s/p RSS - Consent signed and approval in chart AMA Obesity Latent TB - s/p tx 8mo ago Family history ASD - echo normal, plan for echo after delivery in period
[2019-07-19] MEDS: Prenatal Vitamin 1 TAB PO SCH (09:02)
[2019-07-19] MEDS: Docusate 100 MG CAP PO SCH (09:02)
[2019-07-19] MEDS: Ferrous Sulfate 325 MG TAB PO SCH (09:02)
[2019-07-19] MEDS: Polyethylene Glycol 3350 17 GM Packet PO SCH (09:05)
== END 2019-07-19 16:27 | disposition home or self-care (01) | DRG 783 ==
LOC: L&D 21:30 → 3SW 07-16 02:09
PROVIDERS: ADMIT Obstetrics & Gynecology; ATTEND Obstetrics & Gynecology
PROC: 10D00Z1 Extraction of Products of Conception, Low, Open Approach (ICD-10-PCS; principal; 2019-07-16)
PROC: 0UB70ZZ Excision of Bilateral Fallopian Tubes, Open Approach (ICD-10-PCS; 2019-07-16)
DX: O42.913 Preterm premature rupture of membranes, unspecified as to length of time between rupture and onset of labor, third trimester (principal); O60.14X0 Preterm labor third trimester with preterm delivery third trimester, not applicable or unspecified; O98.02 Tuberculosis complicating childbirth; O72.1 Other immediate postpartum hemorrhage; O99.214 Obesity complicating childbirth; O34.13 Maternal care for benign tumor of corpus uteri, third trimester; D25.9 Leiomyoma of uterus, unspecified; O34.211 Maternal care for low transverse scar from previous cesarean delivery; E66.9 Obesity, unspecified; Z3A.35 35 weeks gestation of pregnancy; Z37.0 Single live birth; Z80.41 Family history of malignant neoplasm of ovary
CPT/HCPCS: 36415; 51702; 76815; 85025; 85027; 85610; 85730; 86780; 86850; 86900; 86901; 87340; 88302; 88307; 96360; 96361; 96375; 99283; 99285; J0456; J0595; J0690; J1100; J1200; J1885; J2250; J2274; J2405; J2590; J7050